=== PATIENT | female | born 2000 | race Caucasian/White ===

== ENCOUNTER → 2019-04-11 | Outpatient (CLI) | payer SELFPAY ==
--- NOTE | 2019-04-11 15:02 | REP ---
Clinical: Right ankle pain. Technique: AP, lateral, bilateral oblique views of the right ankle. Findings: Diffuse soft tissue swelling primarily over the lateral malleolus noted. No acute fracture or dislocation. Joint spaces and ankle mortise are intact. No subcutaneous emphysema or foreign body. Impression: Soft-tissue swelling. No acute fracture or dislocation. Electronically Signed by Ion Herrera MD 04/11/2019 12:51 P
== END ==
LOC: M WUC 12:36
PROVIDERS: ATTEND Physician Assistant
DX: S90.01XA Contusion of right ankle, initial encounter (principal); X58.XXXA Exposure to other specified factors, initial encounter; Y92.89 Other specified places as the place of occurrence of the external cause